=== PATIENT | male | born 1950 | race Caucasian/White ===

== ENCOUNTER → 2021-02-17 | Outpatient (CLI) | payer OTHER ==
--- NOTE | 2021-02-17 14:10 | 2DMMODE ---
[facility] [place] [address] 2 D/M-MODE ECHOCARDIOGRAM Name: MATTHEWALBERTO VASQUEZ [id number] Admission: 02/17/21 Attend Phys: Morteza Mon Discharge: Date of : 48 Report #: [id number] THIS REPORT FOR: cc: Reginald Maldonado Winston Lammoglia, Francisco J. MD ~ APPROVED REPORT Study performed: 02/17/2021 12:20:19 EXAM: Comprehensive 2D, Doppler, and color-flow Echocardiogram Patient Location: Echo lab Status: routine BSA: 2.28 HR: 93 bpm BP: 122/85 mmHg Other Information Study Quality: Technically Difficult Technically limited study due to lung disease, body habitus. Indications CAD 2D Dimensions RVDd: 26.15 mm IVSd: 12.59 (7-11mm) LVOT Diam: 22.87 (18-24mm) LVDd: 42.31 mm PWd: 13.54 (7-11mm) Ascending Ao: 37.44 (22-36mm) LVDs: 30.05 (25-40mm) Aortic Root: 31.82 mm IVC: 12.00 mm Volumes Left Atrial Volume (Systole) Single Plane 4CH: 31.96 mL Single Plane 2CH: 37.88 mL LA ESV Index: 16.00 mL/m2 Aortic Valve AoV Peak Danny.: 1.09 m/s AO Peak Gr.: 4.77 mmHg LVOT Max P.58 mmHg LVOT Max V: 0.80 m/s TERRY Vmax: 3.02 cm2 [facility] [address] [address] 2 D/M-MODE ECHOCARDIOGRAM Name: ALBERTO CASTRO Room #: REG CL [facility]#: [id number] Admission: 02/17/21 Attend Phys: Morteza Pires Discharge: Date of : 48 Report #: [id number] Mitral Valve E/A Ratio: 0.6 MV Decel. Time: 169.56 ms MV E Max Danny.: 0.58 m/s MV A Danny.: 0.99 m/s MV PHT: 49.17 ms IVRT: 122.26 ms Pulmonary Valve PV Peak Danny.: 1.00 m/s PV Peak Gr.: 3.99 mmHg Tricuspid Valve TR Peak Danny.: 2.31 m/s RAP Estimate: 5.00 mmHg TR Peak Gr.: 21.32 mmHg PA Pressure: 26.00 mmHg Left Ventricle The left ventricle is normal size. There is normal LV segmental wall motion. Mild concentric left ventricular hypertrophy. Left ventricular systolic function is borderline. LVEF is 50%. Mild diastolic dysfunction is present (impaired relaxation pattern). Right Ventricle The right ventricle is normal size. Atria The left atrium size is normal. The right atrium size is normal. Aortic Valve Mild to moderate aortic valve sclerosis. No aortic regurgitation is present. There is no aortic valvular stenosis. Mitral Valve The mitral valve is normal in structure. Trace mitral regurgitation. No evidence of mitral valve stenosis. Tricuspid Valve The tricuspid valve is normal in structure. Mild tricuspid regurgitation. PAP is estimated at 26 mmHg. Pulmonic Valve The pulmonary valve is normal in structure. Mild pulmonic regurgitation. [facility] [address] [place] [address] 2 D/M-MODE ECHOCARDIOGRAM Name: ALBERTO CASTRO Room #: REG [facility].#: [id number] Admission: 02/17/21 Attend Phys: Morteza Pires Discharge: Date of : 48 Report #: [id number] Great Vessels The aortic root is normal in size. IVC is normal in size and collapses >50% with inspiration. Pericardium There is no pericardial effusion. <Conclusion> The left ventricle is normal size. Mild concentric left ventricular hypertrophy. LVEF is 50%. Mild to moderate aortic valve sclerosis. The mitral valve is normal in structure. Trace mitral regurgitation. The tricuspid valve is normal in structure. Mild tricuspid regurgitation. PAP is estimated at 26 mmHg. The pulmonary valve is normal in structure. Mild pulmonic regurgitation. The aortic root is normal in size. There is no pericardial effusion. <ELECTRONICALLY SIGNED> By: Levar Jarrett MD 02/17/21 1409 D: [id number] Levar Jarrett MD /INF
== END ==
LOC: CV 12:55
PROVIDERS: ATTEND Chiropractor
DX: I08.8 Other rheumatic multiple valve diseases (principal); I25.10 Atherosclerotic heart disease of native coronary artery without angina pectoris